=== PATIENT | female | born 1955 | race Caucasian/White ===

== ENCOUNTER 2023-02-05 09:14 | Day surgery (SDC) | payer MEDICARE, OTHER ==
[2023-02-05] MEDS ORDERED: Sodium Chloride 0.9(Preservative Free) 10 ML IJ ONE (09:15)
[2023-02-05] MEDS ORDERED: Depo-Medrol 40 MG/ML IM ONE (09:15)
[2023-02-05] MEDS ORDERED: DIPRIVAN 200 MG/20 ML IV ONE (12:07)
[2023-02-05] MEDS ORDERED: Lactated Ringers 1,000 ML IV ONE (12:34)
--- NOTE | 2023-02-05 13:11 | XRAY ---
Indication: Left L3-L5 transforaminal CHRISTY. Intraoperative fluoroscopy provided for 24 seconds. 4 digital spot image submitted for interpretation demonstrates posterior needle tips projecting over the expected left L3 and L4 nerve roots. Small amount of contrast injected for needle tip placement. Correlate with intraoperative findings/report.
--- NOTE | 2023-02-05 13:15 | XRAY ---
24 seconds of fluoroscopy was used in surgery for a left L3-L5 transforaminal CHRISTY.
== END 2023-02-05 12:35 | disposition home or self-care (01) ==
LOC: SDC-PAIN 09:14
PROVIDERS: ATTEND Psychiatry & Neurology Pain Medicine
DX: M54.16 Radiculopathy, lumbar region (principal); E11.9 Type 2 diabetes mellitus without complications; Z79.899 Other long term (current) drug therapy
CPT/HCPCS: 64483; 64484; 72100; 77003; 82947; J1030; J2704; Q9966

== ENCOUNTER 2023-03-19 07:15 | Day surgery (SDC) | payer MEDICARE, OTHER ==
[2023-03-19] MEDS ORDERED: Decadron 4 MG INJ IV ONE (07:16)
[2023-03-19] MEDS ORDERED: LIDOCAINE HCL 1% 50 MG/5 ML VL PF IJ ONE (07:16)
[2023-03-19] MEDS ORDERED: Xylocaine-Mpf 2% 5 Ml Vial ONE (09:52)
[2023-03-19] MEDS ORDERED: DIPRIVAN 200 MG/20 ML IV ONE (10:37)
[2023-03-19] MEDS ORDERED: Lactated Ringers 1,000 ML IV ONE (11:43)
--- NOTE | 2023-03-19 12:27 | XRAY ---
Indication: Left piriformis injection Intraoperative fluoroscopy provided 18 seconds. Single digital spot image submitted for interpretation demonstrate posterior needle tip projecting over the left piriformis. Small amount of contrast injected for needle placement. Correlate with intraoperative findings/report.
--- NOTE | 2023-03-19 12:41 | XRAY ---
18 seconds of fluoroscopy was used in surgery for a left piriformis injection.
== END 2023-03-19 11:10 | disposition home or self-care (01) ==
LOC: SDC-PAIN 07:15
PROVIDERS: ATTEND Psychiatry & Neurology Pain Medicine
DX: M79.18 Myalgia, other site (principal); E11.9 Type 2 diabetes mellitus without complications; Z79.899 Other long term (current) drug therapy
CPT/HCPCS: 20553; 36410; 72170; 76942; 77002; 82947; J1100; J2001; J2704; Q9966

== ENCOUNTER 2023-04-16 10:16 | Day surgery (SDC) | payer MEDICARE, OTHER ==
[2023-04-16] MEDS ORDERED: BUPIVACAINE 0.5% VIAL IJ ONE (10:17)
[2023-04-16] MEDS ORDERED: Depo-Medrol 40 MG/ML IM ONE (10:17)
[2023-04-16] MEDS ORDERED: DIPRIVAN 200 MG/20 ML IV ONE (13:45)
[2023-04-16] MEDS ORDERED: MORPHINE SULFATE 2 MG INJ ONE (14:02)
--- NOTE | 2023-04-16 14:41 | XRAY ---
Indication: Left knee injection. Intraoperative fluoroscopy provided for 6 seconds. Single digital spot image submitted for interpretation demonstrates needle tip projecting over the left femur intercondylar notch. Small amount of contrast injected for needle tip placement. Correlate with intraoperative findings/report.
[2023-04-16] MEDS ORDERED: Lactated Ringers 1,000 ML IV ONE (14:51)
--- NOTE | 2023-04-16 14:55 | XRAY ---
6 seconds of fluoroscopy was used in surgery for a left intra-articular knee injection.
== END 2023-04-16 14:25 | disposition home or self-care (01) ==
LOC: SDC-PAIN 10:16
PROVIDERS: ATTEND Psychiatry & Neurology Pain Medicine
DX: M17.12 Unilateral primary osteoarthritis, left knee (principal); M70.52 Other bursitis of knee, left knee; E11.9 Type 2 diabetes mellitus without complications; Z79.899 Other long term (current) drug therapy
CPT/HCPCS: 20610; 73560; 77002; 82947; J1030; J2270; J2704; Q9966

== ENCOUNTER 2023-05-21 07:09 | Day surgery (SDC) | payer MEDICARE, OTHER ==
[2023-05-21] MEDS ORDERED: Depo-Medrol 40 MG/ML IM ONE (07:10)
[2023-05-21] MEDS ORDERED: BUPIVACAINE 0.5% VIAL IJ ONE (07:10)
[2023-05-21] MEDS ORDERED: DIPRIVAN 200 MG/20 ML IV ONE (09:35)
[2023-05-21] MEDS ORDERED: MORPHINE SULFATE 2 MG INJ ONE (09:59)
--- NOTE | 2023-05-21 10:44 | XRAY ---
Indication: Right knee injection. Intraoperative fluoroscopy provided for 6 seconds. Single digital spot image submitted for interpretation demonstrates needle tip projecting over right femur intercondylar notch. Small amount of contrast injected for needle tip placement. Correlate with intraoperative findings/report.
--- NOTE | 2023-05-21 10:44 | XRAY ---
6 seconds of fluoroscopy was used in surgery for a right intra-articular knee injection.
[2023-05-21] MEDS ORDERED: Lactated Ringers 1,000 ML IV ONE (15:29)
== END 2023-05-21 10:20 | disposition home or self-care (01) ==
LOC: SDC-PAIN 07:09
PROVIDERS: ATTEND Psychiatry & Neurology Pain Medicine
DX: M17.11 Unilateral primary osteoarthritis, right knee (principal); M70.51 Other bursitis of knee, right knee; E11.9 Type 2 diabetes mellitus without complications
CPT/HCPCS: 20610; 73560; 77002; 82947; J1030; J2270; J2704; Q9966

== ENCOUNTER 2023-09-03 15:03 | Day surgery (SDC) | payer MEDICARE ==
[2023-09-03] MEDS ORDERED: GELSYN-3 IU ONE (15:04)
[2023-09-03] MEDS ORDERED: LIDOCAINE HCL 1% 50 MG/5 ML VL PF IJ ONE (15:04)
--- NOTE | 2023-09-03 18:24 | XRAY ---
Indication: Left knee injection. Intraoperative fluoroscopy provided for 8 seconds. Single digital spot image submitted for interpretation demonstrates needle tip projecting over the left femur intercondylar notch. Small amount of contrast injected for needle tip placement. Correlate with intraoperative findings/report.
--- NOTE | 2023-09-04 12:01 | XRAY ---
8 seconds of fluoroscopy was used in surgery for a left intra-articular knee injection.
== END 2023-09-03 17:50 | disposition home or self-care (01) ==
LOC: SDC-PAIN 15:03
PROVIDERS: ATTEND Psychiatry & Neurology Pain Medicine
DX: M17.12 Unilateral primary osteoarthritis, left knee (principal); E11.9 Type 2 diabetes mellitus without complications
CPT/HCPCS: 20610; 73560; 77002; 82947; J2001; J7328; Q9966

== ENCOUNTER 2023-09-10 14:51 | Day surgery (SDC) | payer MEDICARE ==
[2023-09-10] MEDS ORDERED: GELSYN-3 IU ONE (14:52)
[2023-09-10] MEDS ORDERED: LIDOCAINE HCL 1% 50 MG/5 ML VL PF IJ ONE (14:52)
--- NOTE | 2023-09-10 19:09 | XRAY ---
Indication: Left knee injection. Intraoperative fluoroscopy provided for 8 seconds. Single digital spot image submitted for interpretation demonstrates needle tip projecting over left femur intercondylar notch. Small amount of contrast injected for needle tip placement. Correlate with intraoperative findings/report.
--- NOTE | 2023-09-11 08:50 | XRAY ---
8 seconds of fluoroscopy was used in surgery for a left intra-articular knee injection.
== END 2023-09-10 17:27 | disposition home or self-care (01) ==
LOC: SDC-PAIN 14:51
PROVIDERS: ATTEND Psychiatry & Neurology Pain Medicine
DX: M17.12 Unilateral primary osteoarthritis, left knee (principal); E11.9 Type 2 diabetes mellitus without complications
CPT/HCPCS: 20610; 73560; 77002; 82947; J2001; J7328; Q9966

== ENCOUNTER 2023-09-17 14:18 | Day surgery (SDC) | payer MEDICARE ==
[2023-09-17] MEDS ORDERED: LIDOCAINE HCL 1% 50 MG/5 ML VL PF IJ ONE (14:19)
[2023-09-17] MEDS ORDERED: GELSYN-3 IU ONE (14:19)
--- NOTE | 2023-09-17 17:11 | XRAY ---
Indication: Left knee injection. Intraoperative fluoroscopy provided for 5 seconds. Single digital spot image submitted for interpretation demonstrates needle tip projecting over left femur intercondylar notch. Small amount of contrast injected for needle tip placement. Correlate with intraoperative findings/report.
--- NOTE | 2023-09-17 17:13 | XRAY ---
5 seconds of fluoroscopy were used in surgery for a left intra-articular knee injection.
== END 2023-09-17 16:43 | disposition home or self-care (01) ==
LOC: SDC-PAIN 14:18
PROVIDERS: ATTEND Psychiatry & Neurology Pain Medicine
DX: M17.12 Unilateral primary osteoarthritis, left knee (principal); E11.9 Type 2 diabetes mellitus without complications
CPT/HCPCS: 20610; 73560; 77002; 82947; J2001; J7328; Q9966

== ENCOUNTER 2024-02-04 07:39 | Day surgery (SDC) | payer MEDICARE, OTHER ==
[2024-02-04] MEDS ORDERED: Decadron 4 MG INJ IV ONE (07:40)
[2024-02-04] MEDS ORDERED: Sodium Chloride 0.9(Preservative Free) 10 ML IJ ONE (07:40)
[2024-02-04] MEDS ORDERED: LIDOCAINE HCL 1% 50 MG/5 ML VL PF IJ ONE (07:40)
[2024-02-04] MEDS ORDERED: DIPRIVAN 200 MG/20 ML IV ONE (08:55)
[2024-02-04] MEDS ORDERED: Lactated Ringers 1,000 ML IV ONE (09:31)
--- NOTE | 2024-02-04 10:28 | XRAY ---
Indication: Left L3-L5 transforaminal CHRISTY. Intraoperative fluoroscopy was provided for 23 seconds. 4 digital spot image submitted for interpretation demonstrates posterior needle tip projecting over expected left L3 and L4 nerve roots. Small amount of contrast injected for needle tip placement. Correlate with intraoperative findings/report.
--- NOTE | 2024-02-04 10:28 | XRAY ---
Indication: Left piriformis injection. Intraoperative fluoroscopy was provided for 24 seconds. Single digital spot image submitted for interpretation demonstrates posterior needle tip projecting over left piriformis. Small amount of contrast injected for needle tip placement. Correlate with intraoperative findings/report.
--- NOTE | 2024-02-04 12:27 | XRAY ---
24 seconds of fluoroscopy was used in surgery for a left piriformis injection.
--- NOTE | 2024-02-04 12:27 | XRAY ---
23 seconds of fluoroscopy was used in surgery for a left L3-L5 transforaminal CHRISTY.
== END 2024-02-04 09:25 | disposition home or self-care (01) ==
LOC: SDC-PAIN 07:39
PROVIDERS: ATTEND Psychiatry & Neurology Pain Medicine
DX: M54.16 Radiculopathy, lumbar region (principal); M79.18 Myalgia, other site; E11.9 Type 2 diabetes mellitus without complications
CPT/HCPCS: 20552; 64483; 64484; 72100; 72170; 77002; 77003; 82947; J1100; J2001; J2704; Q9966

== ENCOUNTER 2024-03-10 07:19 | Day surgery (SDC) | payer MEDICARE, OTHER ==
[2024-03-10] MEDS ORDERED: Xylocaine-Mpf 2% 5 Ml Vial IJ ONE (07:20)
[2024-03-10] MEDS ORDERED: DIPRIVAN 200 MG/20 ML IV ONE (09:03)
[2024-03-10] MEDS ORDERED: Lactated Ringers 1,000 ML IV ONE (09:52)
--- NOTE | 2024-03-10 10:29 | XRAY ---
Indication: Bilateral L4-S1 MBB. Intraoperative fluoroscopy provided for 8 seconds. Single digital spot image submitted for interpretation demonstrates posterior needle tips projecting over the expected left and right L4-S1 nerve roots. Correlate with intraoperative findings/report.
--- NOTE | 2024-03-10 11:33 | XRAY ---
8 seconds of fluoroscopy was used in surgery for a bilateral L4-S1 MBB.
== END 2024-03-10 09:26 | disposition home or self-care (01) ==
LOC: SDC-PAIN 07:19
PROVIDERS: ATTEND Psychiatry & Neurology Pain Medicine
DX: M47.816 Spondylosis without myelopathy or radiculopathy, lumbar region (principal); E11.9 Type 2 diabetes mellitus without complications
CPT/HCPCS: 64493; 64494; 72020; 77002; 82947; J2704

== ENCOUNTER 2024-04-14 07:01 | Day surgery (SDC) | payer MEDICARE, OTHER ==
[2024-04-14] MEDS ORDERED: BUPIVACAINE 0.5% VIAL IJ ONE (07:02)
[2024-04-14] MEDS ORDERED: Xylocaine-Mpf 2% 5 Ml Vial ONE (08:36)
[2024-04-14] MEDS ORDERED: DIPRIVAN 200 MG/20 ML IV ONE ×2 (08:36→08:48)
--- NOTE | 2024-04-14 10:14 | XRAY ---
Indication: Bilateral L4-S1 MBB. Intraoperative fluoroscopy provided for 11 seconds. Single digital spot image submitted for interpretation demonstrates posterior needle tips projecting over the expected left and right L4-S1 nerve root. Correlate with intraoperative findings/report.
--- NOTE | 2024-04-14 11:46 | XRAY ---
11 seconds of fluoroscopy was used in surgery for a bilateral L4-S1 MBB.
== END 2024-04-14 09:05 | disposition home or self-care (01) ==
LOC: SDC-PAIN 07:01
PROVIDERS: ATTEND Psychiatry & Neurology Pain Medicine
DX: M47.816 Spondylosis without myelopathy or radiculopathy, lumbar region (principal); E11.9 Type 2 diabetes mellitus without complications
CPT/HCPCS: 64493; 64494; 72020; 77002; 82947; J2704

== ENCOUNTER 2024-05-12 06:40 | Day surgery (SDC) | payer MEDICARE, OTHER ==
[2024-05-12] MEDS ORDERED: BUPIVACAINE 0.5% VIAL IJ ONE (06:41)
[2024-05-12] MEDS ORDERED: Depo-Medrol 40 MG/ML IM ONE (06:41)
[2024-05-12] MEDS ORDERED: Xylocaine-Mpf 2% 5 Ml Vial ONE (08:11)
[2024-05-12] MEDS ORDERED: DIPRIVAN 200 MG/20 ML IV ONE (08:11)
--- NOTE | 2024-05-12 18:50 | XRAY ---
Indication: Left L4-S1 RFA. Intraoperative fluoroscopy provided for 17 seconds. 3 digital spot image submitted for interpretation demonstrates posterior needle tips projecting over the expected left L4-S1 nerve roots. Correlate with intraoperative findings/report.
--- NOTE | 2024-05-12 19:22 | XRAY ---
17 seconds of fluoroscopy was used in surgery for a left L4-S1 RFA.
== END 2024-05-12 08:50 | disposition home or self-care (01) ==
LOC: SDC-PAIN 06:40
PROVIDERS: ATTEND Psychiatry & Neurology Pain Medicine
DX: M47.816 Spondylosis without myelopathy or radiculopathy, lumbar region (principal); E11.9 Type 2 diabetes mellitus without complications
CPT/HCPCS: 64635; 64636; 72100; 77002; 82947; J2704

== ENCOUNTER → 2024-05-19 | Day surgery (SDC) | payer MEDICARE, OTHER ==
[~2024-05-19] MED LIST: BUPIVACAINE 0.5% VIAL IJ ONE; DIPRIVAN 200 MG/20 ML IV ONE; Depo-Medrol 40 MG/ML IM ONE; LIDOCAINE HCL 1% AMPUL 5 ML IJ ONE
--- NOTE | 2024-05-19 11:03 | XRAY ---
Indication: Right L4-S1 RFA. Intraoperative fluoroscopy provided for 19 seconds. 4 digital spot image submitted for interpretation demonstrates posterior needle tips projecting over expected right L4-S1 nerve roots. Correlate with intraoperative findings/report.
--- NOTE | 2024-05-19 12:15 | XRAY ---
19 seconds of fluoroscopy was used in surgery for a right L4-S1 RFA.
== END ==
LOC: SDC-PAIN 06:37
PROVIDERS: ATTEND Psychiatry & Neurology Pain Medicine
DX: M47.816 Spondylosis without myelopathy or radiculopathy, lumbar region (principal); E11.9 Type 2 diabetes mellitus without complications
CPT/HCPCS: 64635; 64636; 72100; 77002; 82947; J2704

== ENCOUNTER 2024-09-01 07:05 | Day surgery (SDC) | payer MEDICARE, OTHER ==
[2024-09-01] MEDS ORDERED: LIDOCAINE HCL 2% 100 MG/5 ML IJ ONE (07:06)
[2024-09-01] MEDS ORDERED: Lactated Ringers 500 ML IV ONE (08:01)
[2024-09-01] MEDS ORDERED: propofoL IV ONE (09:32)
--- NOTE | 2024-09-01 10:19 | XRAY ---
Indication: Left C3-C5 MBB. Intraoperative fluoroscopy provided for 8 seconds. 2 digital spot images submitted for interpretation demonstrates posterior needle tips projecting over expected left C3-C5 nerve roots. Correlate with intraoperative findings/report.
--- NOTE | 2024-09-01 10:26 | XRAY ---
8 seconds of fluoroscopy was used in surgery for a left C3-C5 MBB.
== END 2024-09-01 10:10 | disposition home or self-care (01) ==
LOC: SDC-PAIN 07:05
PROVIDERS: ATTEND Psychiatry & Neurology Pain Medicine
DX: M47.812 Spondylosis without myelopathy or radiculopathy, cervical region (principal); E11.9 Type 2 diabetes mellitus without complications
CPT/HCPCS: 64490; 64491; 72040; 82947; J2704

== ENCOUNTER 2024-09-30 06:26 | Day surgery (SDC) | payer MEDICARE, OTHER ==
[2024-09-30] MEDS ORDERED: BUPIVACAINE 0.5% VIAL IJ ONE (06:27)
[2024-09-30] MEDS ORDERED: Xylocaine-Mpf 2% 5 Ml Vial ONE (08:24)
[2024-09-30] MEDS ORDERED: propofoL IV ONE (08:24)
[2024-09-30] MEDS ORDERED: Lactated Ringers 1,000 ML IV ONE (08:36)
--- NOTE | 2024-09-30 10:38 | XRAY ---
Indication: Left C3-C5 MBB. Intraoperative fluoroscopy provided for 20 seconds. 3 digital spot image submitted for interpretation demonstrates posterior needle tips projecting over expected left C3-C5 nerve roots. Correlate with intraoperative findings/report.
--- NOTE | 2024-09-30 10:52 | XRAY ---
20 seconds of fluoroscopy used in surgery for a left C3-C5 MBB.
== END 2024-09-30 08:58 | disposition home or self-care (01) ==
LOC: SDC-PAIN 06:26
PROVIDERS: ATTEND Psychiatry & Neurology Pain Medicine
DX: M47.812 Spondylosis without myelopathy or radiculopathy, cervical region (principal); E11.9 Type 2 diabetes mellitus without complications
CPT/HCPCS: 64490; 64491; 72040; 82947; J2704

== ENCOUNTER 2024-10-20 07:51 | Day surgery (SDC) | payer MEDICARE, OTHER ==
[2024-10-20] MEDS ORDERED: BUPIVACAINE 0.5% VIAL IJ ONE (07:52)
[2024-10-20] MEDS ORDERED: LIDOCAINE HCL 1% 50 MG/5 ML VL IJ ONE (07:52)
[2024-10-20] MEDS ORDERED: dexAMETHasone sodium phosphate IJ ONE (07:52)
[2024-10-20] MEDS ORDERED: propofoL IV ONE (10:23)
[2024-10-20] MEDS ORDERED: Xylocaine-Mpf 2% 5 Ml Vial ONE (10:24)
[2024-10-20] MEDS ORDERED: Lactated Ringers 1,000 ML IV ONE (10:25)
--- NOTE | 2024-10-20 21:02 | XRAY ---
Indication: Left C3-C5 RFA. Intraoperative fluoroscopy provided for 17 seconds. 4 digital spot image submitted for interpretation demonstrates posterior needle tips projecting over expected left C3-C5 nerve roots. Correlate with intraoperative findings/report.
--- NOTE | 2024-10-20 21:21 | XRAY ---
17 seconds of fluoroscopy was used in surgery for a left C3-C5 RFA.
== END 2024-10-20 10:46 | disposition home or self-care (01) ==
LOC: SDC-PAIN 07:51
PROVIDERS: ATTEND Psychiatry & Neurology Pain Medicine
DX: M47.812 Spondylosis without myelopathy or radiculopathy, cervical region (principal); E11.9 Type 2 diabetes mellitus without complications
CPT/HCPCS: 64633; 64634; 72040; 82947; J1100; J2704

== ENCOUNTER 2025-01-12 06:26 | Day surgery (SDC) | payer MEDICARE, OTHER ==
[2025-01-12] MEDS ORDERED: Sodium Chloride 0.9(Preservative Free) 10 ML IJ ONE (06:27)
[2025-01-12] MEDS ORDERED: LIDOCAINE HCL 1% 50 MG/5 ML VL IJ ONE (06:27)
[2025-01-12] MEDS ORDERED: propofoL IV ONE (08:33)
[2025-01-12] MEDS ORDERED: Xylocaine-Mpf 2% 5 Ml Vial ONE (08:33)
[2025-01-12] MEDS ORDERED: Lactated Ringers 1,000 ML IV ONE (10:25)
--- NOTE | 2025-01-12 11:42 | XRAY ---
Indication: Left L3-L5 transforaminal CHRISTY. Intraoperative fluoroscopy provided for 22 seconds. 2 digital spot image submitted for interpretation demonstrates posterior needle tips projecting over expected left L3 and L4 nerve roots. Small amount of contrast injected for needle tip placement. Correlate with intraoperative findings/report.
--- NOTE | 2025-01-12 11:44 | XRAY ---
Indication: Left piriformis injection. Intraoperative fluoroscopy provided for 13 seconds. Single digital spot image submitted for interpretation demonstrates posterior needle tip projecting over left piriformis. Small amount of contrast injected for needle tip placement. Correlate with intraoperative findings/report. Incidental incompletely visualized left hip arthroplasty
--- NOTE | 2025-01-12 12:16 | XRAY ---
13 seconds of fluoroscopy was used in surgery for a left piriformis injection.
--- NOTE | 2025-01-12 12:17 | XRAY ---
22 seconds of fluoroscopy was used in surgery for a left L3-L5 transforaminal CHRISTY.
== END 2025-01-12 09:00 | disposition home or self-care (01) ==
LOC: SDC-PAIN 06:26
PROVIDERS: ATTEND Psychiatry & Neurology Pain Medicine
DX: M54.16 Radiculopathy, lumbar region (principal); M79.18 Myalgia, other site

== ENCOUNTER 2025-03-30 07:19 | Day surgery (SDC) | payer MEDICARE, OTHER ==
[2025-03-30] MEDS ORDERED: LIDOCAINE HCL 2% 100 MG/5 ML IJ ONE (07:20)
[2025-03-30] MEDS ORDERED: propofoL IV ONE (09:41)
[2025-03-30] MEDS ORDERED: Xylocaine-Mpf 2% 5 Ml Vial ONE (09:43)
--- NOTE | 2025-03-30 11:53 | XRAY ---
Indication: Right C3-C5 MBB Intraoperative fluoroscopy provided for 13 seconds. 2 digital spot images submitted for interpretation demonstrates posterior needle tips projecting over expected right C3-C5 nerve roots. Correlate with intraoperative findings/report.
--- NOTE | 2025-03-30 12:32 | XRAY ---
13 seconds of fluoroscopy was used in surgery for a right C3-C5 MBB.
[2025-03-30] MEDS ORDERED: Lactated Ringers 1,000 ML IV ONE (14:01)
== END 2025-03-30 10:20 | disposition home or self-care (01) ==
LOC: SDC-PAIN 07:19
PROVIDERS: ATTEND Psychiatry & Neurology Pain Medicine
DX: M47.812 Spondylosis without myelopathy or radiculopathy, cervical region (principal); E11.9 Type 2 diabetes mellitus without complications

== ENCOUNTER 2025-04-21 07:32 | Day surgery (SDC) | payer MEDICARE, OTHER ==
[2025-04-21] MEDS ORDERED: BUPIVACAINE 0.5% VIAL IJ ONE (07:33)
[2025-04-21] MEDS ORDERED: propofoL IV ONE ×2 (08:58→09:08)
[2025-04-21] MEDS ORDERED: Xylocaine-Mpf 2% 5 Ml Vial ONE (08:59)
[2025-04-21] MEDS ORDERED: Lactated Ringers 1,000 ML IV ONE (09:55)
--- NOTE | 2025-04-21 10:12 | XRAY ---
Indication: Right C3-C5 MBB. Intraoperative fluoroscopy provided for 18 seconds. 3 digital spot image submitted for interpretation demonstrates posterior needle tips projecting over expected right C3-C5 nerve roots. Correlate with intraoperative findings/report.
--- NOTE | 2025-04-21 12:09 | XRAY ---
18 seconds of fluoroscopy was used in surgery for a right C3-C5 MBB.
== END 2025-04-21 09:30 | disposition home or self-care (01) ==
LOC: SDC-PAIN 07:32
PROVIDERS: ATTEND Psychiatry & Neurology Pain Medicine
DX: M47.812 Spondylosis without myelopathy or radiculopathy, cervical region (principal); E11.9 Type 2 diabetes mellitus without complications

== ENCOUNTER 2025-05-11 06:40 | Day surgery (SDC) | payer MEDICARE, OTHER ==
[2025-05-11] MEDS ORDERED: LIDOCAINE HCL 1% 50 MG/5 ML VL IJ ONE (06:41)
[2025-05-11] MEDS ORDERED: BUPIVACAINE 0.5% VIAL IJ ONE (06:41)
[2025-05-11] MEDS ORDERED: propofoL IV ONE (08:08)
[2025-05-11] MEDS ORDERED: Lactated Ringers 1,000 ML IV ONE (10:04)
--- NOTE | 2025-05-11 11:44 | XRAY ---
Indication: Right C3-C5 RFA. Intraoperative fluoroscopy provided for 27 seconds. 2 digital spot image submitted for interpretation demonstrates posterior needle tips projecting over expected right C3-C5 nerve roots. Correlate with intraoperative findings/report.
--- NOTE | 2025-05-11 12:34 | XRAY ---
27 seconds of fluoroscopy was used in surgery for a right C3-C5 RFA.
== END 2025-05-11 08:51 | disposition home or self-care (01) ==
LOC: SDC-PAIN 06:40
PROVIDERS: ATTEND Psychiatry & Neurology Pain Medicine
DX: M47.812 Spondylosis without myelopathy or radiculopathy, cervical region (principal); E11.9 Type 2 diabetes mellitus without complications